=== PATIENT | female | born 1955 | race Caucasian/White ===

== ENCOUNTER → 2021-03-22 14:43 | Outpatient (CLI) | payer MEDICARE, OTHER, SELFPAY ==
--- NOTE | ~2021-03-22 | XR_ITS ---
EXAMINATION: XR knee LT 3V DATE: 03/22/2021 15:02 INDICATION: Left knee pain. TECHNIQUE: 3 views of left knee were obtained. COMPARISON: None. FINDINGS: Bone alignment is normal. No fracture. There is mild tricompartmental osteophytosis. There is a moderate-sized knee joint effusion. IMPRESSION: 1. Mild left knee osteoarthritis. 2. Moderate-sized left knee joint effusion. Reviewed, dictated and finalized at location A.
== END ==
PROVIDERS: PCP Internal Medicine; Visit Provider Internal Medicine
DX: M25.569 Pain in unspecified knee (principal); M17.12 Unilateral primary osteoarthritis, left knee; M25.462 Effusion, left knee
CPT/HCPCS: 73562

== ENCOUNTER 2021-05-02 11:00 | Outpatient (RCR) | payer MEDICARE, OTHER, SELFPAY ==
--- NOTE | 2021-04-17 10:45 | PTOPEVAL ---
Thank you for referring Lucero Dior to [facility].? The patient is scheduled to be seen for therapy? 1 x/week for 4 weeks. Please review, sign, date and return this plan of care MITZI. I agree with and certify that the following plan of care is medically necessary. Referring Physician Date Attending Provider: Vito Fong MD Diagnosis left knee pain Onset 2 months ago Additional Evaluation Detail she had a x-ray which showed fluid of the knee. She received an injection 04/05/21. She had a fall 2 wks ago when her left knee gave out, landing backwards. Subjective Information She reports the knee simply Query Text:As Reported By Patient/ started hurting. She denies Family any injury to the knee. Reports increased pain and difficulty getting out of the chair, walking, squating, negotiating steps. She has not been walking the dogs due to pain. 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 Reports her hip region is also sore. Reports increased pain at night. States her right knee is now also painful. Pain Assessment Self Report Pain Assessment Left Knee(s) Reported Pain Level 5 Pain Description Aching,Tightness Pain Frequency Acute,Continuous Lowest Pain Intensity 4 Greatest Pain Intensity 8 Pain Aggravating Factors ADL's,Bending,Exercise/ Activity,Sitting,Stair Climbing,Walking,Weight Bearing/Standing Lower Extremity Range of Motion Knee Range of Motion Right Knee Flexion Range of Motion - Active 125 Knee Extension Range of Motion - Active -15 Left Knee Flexion Range of Motion - Active 98 Knee Extension Range of Motion - Active 0 Knee Range of Motion Limitations Pain Lower Extremity Muscle Strength Testing Hip Strength Bilateral Hip Flexion Strength 4 Good Hip Extension Strength 3 Fair Hip Abduction Strength 3 Fair Knee Strength Bilateral Knee Flexion Strength 4- Good - Knee Extension Strength 4- Good - Ankle Strength Bilateral Ankle Dorsiflexion Strength 5 Normal Muscle Length Testing Muscle Length Testing Two-Joint Hip Flexor Shortened Muscles Short (R) Iliopsoas,Short (L)
--- NOTE | 2021-04-27 08:38 | PCPTNOTE ---
Patient called & cancelled scheduled appointment this date due to being sick.
--- NOTE | 2021-05-08 11:17 | PCPTNOTE ---
Patient called & cancelled scheduled appointment this date due to just getting out of the hospital.
--- NOTE | 2021-05-11 08:19 | PCPTNOTE ---
Patient called & cancelled scheduled appointment for re-eval due to knee limitations have improved. Will plan to DC.
--- NOTE | 2021-05-11 08:21 | PCPTNOTE ---
Admitting Provider: Attending Provider: Vito Fong MD Patient:Lucero Dior Date of :1955 Discharge Note Patient has not returned for any further treatments since 05/02/2021. She called to request her additional visits be cancelled due to her knee feeling better. Therefore she will be discharged at this time. Patient?s initial visit was on 04/17/2021 09:30 and she had a total of 2 visits with 3 cancelled visits. The goals have been not met at this time. Thank you for referring this patient to [facility]. Please review, sign, date and return this discharge summary MITZI. I have been updated about the patient's current status and I agree with discharge from the above service at this time. Referring Physician Date
== END 2021-07-02 11:47 | disposition home or self-care (01) ==
LOC: ANHPT 11:00
PROVIDERS: PCP Internal Medicine; Visit Provider Orthopaedic Surgery
DX: M17.12 Unilateral primary osteoarthritis, left knee (principal)
CPT/HCPCS: 97110; 97161; 97530

== ENCOUNTER 2021-08-10 07:07 | Outpatient (CLI) | payer MEDICARE, OTHER, SELFPAY ==
--- NOTE | ~2021-08-10 | MM_ITS ---
EXAMINATION: MM screening nichole BI w nellie HISTORY: Screening mammogram TECHNIQUE: Craniocaudal and mediolateral oblique 3-D tomosynthesis images were obtained and synthetic 2-D images were generated. CAD analysis was submitted and interpreted. COMPARISON: 07/28/2019, 07/03/2018, 06/16/2017 bilateral screening mammogram examinations BREAST PARENCHYMAL COMPOSITION: There are scattered areas of fibroglandular density. FINDINGS: There is no evidence of suspicious mass, calcification, or architectural distortion to sugg est malignancy in either breast. There has been no suspicious interval change. IMPRESSION: 1. No mammographic evidence of malignancy. 2. Recommend routine screening mammography in one year. BI-RADS Category 1: Negative Reviewed, dictated and finalized at location A. [employer]
== END 2021-08-10 07:08 | disposition home or self-care (01) ==
LOC: ANHIMG 07:09
PROVIDERS: PCP Internal Medicine; Visit Provider Obstetrics & Gynecology
DX: Z12.31 Encounter for screening mammogram for malignant neoplasm of breast (principal)
CPT/HCPCS: 77063; 77067

== ENCOUNTER 2022-02-28 09:35 | Outpatient (CLI) | payer MEDICARE, OTHER, SELFPAY ==
--- NOTE | ~2022-02-28 | DEXA_ITS ---
Bone Density Report Name: MONTY GARZA Age: 67 Sex: Female Ethnicity: White Date of : 1955 Indication: postmenopausal; screening for osteoporosis; height loss; Referring Provider: CHARLY RANDALL Study: Bone densitometry was performed. Exam Date: February 28, 2022 Accession number: [id number] Bone Density: Region BMD T-score Z-score Classification AP Spine(L1, L2) 1.220 2.2 4.1 Normal Femoral Neck (Left) 0.739 -1.0 0.7 Normal Total Hip (Left) 0.973 0.3 1.7 Normal Femoral Neck (Right) 0.764 -0.8 1.0 Normal Total Hip (Right) 0.970 0.2 1.7 Normal Total Hip Mean 0.972 0.3 1.7 Normal World Health Organization criteria for BMD impression classify patients as: Normal (T-score at or above -1.0), Osteopenia (T-score between -1.0 and -2.5), or Osteoporosis (T-score at or below -2.5). 10-year Fracture Risk: FRAX not reported because: All T-scores for Spine Total, Hip Total, Femoral Neck at or above -1.0 Clinical Information Provided by Patient: Smokes Patient maximum height was 66 Menopause Age: 48 No regular weight bearing exercise Does not regularly consume dairy products Drinks caffeinated beverages Onset of menses at age 13 Number of children 2 Impression: The patient has normal bone mass. The patient has risk factors, including: smoking. Discussion: BONE DENSITY IS ABOVE THE MINIMUM DESIRABLE LEVEL AT ALL SKELETAL SITES TESTED. This patient?s bone mineral density is above the minimum desirable level (T-score -1.0 or better) at all sites measured. The patient should follow a healthful lifestyle (good nutrition with adequate calcium and vitamin D, and appropriate weight-bearing exercise). Follow-Up: Consider repeating this study in 5 years or sooner if there is some new clinical indication. Reported by: [facility] on 02/28/2022 10:00:00 AM. Reviewed, dictated and finalized at location ASejal KILLIAN
== END 2022-02-28 09:36 | disposition home or self-care (01) ==
PROVIDERS: PCP Internal Medicine; Visit Provider Nurse Practitioner
DX: Z78.0 Asymptomatic menopausal state (principal)
CPT/HCPCS: 77080

== ENCOUNTER 2022-11-20 11:26 | Outpatient (CLI) | payer MEDICARE, OTHER, SELFPAY ==
--- NOTE | ~2022-11-20 | MM_ITS ---
EXAMINATION: MM screening nichole BI w nellie HISTORY: Screening mammogram TECHNIQUE: Craniocaudal and mediolateral oblique 3-D tomosynthesis images were obtained and synthetic 2-D images were generated. CAD analysis was submitted and interpreted. COMPARISON: 08/10/2021, 07/28/2019, 07/03/2018 bilateral screening mammogram examinations BREAST PARENCHYMAL COMPOSITION: There are scattered areas of fibroglandular density. FINDINGS: There is no evidence of suspicious mass, calcification, or architectural distortion to sugg est malignancy in either breast. There has been no suspicious interval change. IMPRESSION: 1. No mammographic evidence of malignancy. 2. Recommend routine screening mammography in one year. BI-RADS Category 1: Negative Reviewed, dictated and finalized at location A. CUTTER
== END 2022-11-20 11:27 | disposition home or self-care (01) ==
LOC: ANHIMG 11:29
PROVIDERS: PCP Internal Medicine; Visit Provider Nurse Practitioner
DX: Z12.31 Encounter for screening mammogram for malignant neoplasm of breast (principal)
CPT/HCPCS: 77063; 77067

== ENCOUNTER 2024-05-27 15:07 | Outpatient (CLI) | payer MEDICARE, OTHER, SELFPAY ==
--- NOTE | ~2024-05-27 | MM_ITS ---
EXAMINATION: MM screening nichole BI w nellie HISTORY: Screening TECHNIQUE: Craniocaudal and mediolateral oblique 3-D tomosynthesis images were obtained and synthetic 2-D images were generated. CAD analysis was submitted and interpreted. COMPARISON: Comparison to multiple prior studies sequentially, with oldest reviewed study dated 02/2019. BREAST PARENCHYMAL COMPOSITION: Not dense: There are scattered areas of fibroglandular density. FINDINGS: There is no evidence of suspicious mass, calcification, or architectural distortion to sugg est malignancy in either breast. There has been no suspicious interval change. IMPRESSION: 1. No mammographic evidence of malignancy. 2. Recommend routine screening mammography in one year. BI-RADS Category 1: Negative Reviewed, dictated and finalized at location B.
== END 2024-05-27 15:08 | disposition home or self-care (01) ==
LOC: ANHIMG 15:08
PROVIDERS: PCP Family Medicine; Visit Provider Nurse Practitioner
DX: Z12.31 Encounter for screening mammogram for malignant neoplasm of breast (principal)
CPT/HCPCS: 77063; 77067

== ENCOUNTER 2025-07-06 15:16 | Outpatient (CLI) | payer MEDICARE, OTHER, SELFPAY ==
--- NOTE | ~2025-07-06 | XR_ITS ---
EXAMINATION: XR knee RT 3V, 07/06/2025 15:32 CDT HISTORY: MEDIAL RT KNEE PAIN x3 MONTHS COMPARISON: No comparisons available. Findings: No acute fracture or malalignment. Moderate tricompartmental degenerative changes Soft tissues unremarkable. Impression: No acute fracture or malalignment. Reviewed, dictated and finalized at location P. Impression: No acute fracture or malalignment.
== END 2025-07-06 15:17 | disposition home or self-care (01) ==
LOC: MICIMG 15:18
PROVIDERS: PCP Family Medicine; Visit Provider Family Medicine
DX: M17.11 Unilateral primary osteoarthritis, right knee (principal)
CPT/HCPCS: 73562

== ENCOUNTER 2025-09-10 08:41 | Emergency (ER) | payer MEDICARE, OTHER, SELFPAY ==
--- NOTE | ~2025-09-10 | XR_ITS ---
Examination: XR chest 2V Clinical History: cough few months, smoker, hx bronchitis Comparison: Chest x-rays 11/19/2017 Technique: PA and Lateral Findings: Cardiomediastinal silhouette normal size and configuration. Subtle patchy bibasilar opacity. No acute bony abnormality. IMPRESSION: 1. Mild bibasilar atelectasis and/or airspace disease. 2. Trace pleural fluid within major fissure.. Reviewed, dictated and finalized at location R. CHIST
[2025-09-10 08:52] VITALS: BP 147/92; PULSE 86; RESP 18; TEMP 36.6; O2SAT 96
--- NOTE | 2025-09-10 09:07 | ED.URI ---
HPI - URI/Sore Throat General Chief Complaint: Upper Respiratory Infection Stated Complaint: Sinus patient presents to the [facility] accompanied by family with complaints of cough, chest congestion, and nasal congestion, pressure in ears, diarrhea, and fatigue that began about 2-3 weeks ago. Patient reports using Mucinex with minimal relief of symptoms. No known sick contacts. Patient does report history of bronchitis every few years but denies having any continued inhalers or as needed inhalers at home. No history of pneumonia or lung disease. Denies fever, chills, body aches, shortness of breath nausea, vomiting, dizziness, or sore throat. Related Data Home Medications ?Medication ?Instructions ?Recorded ?Confirmed ?Last Taken ?Type aspirin 81 mg tablet,delayed 81 mg PO DAILY 10/16/21 11/05/22 Unknown History release (Adult Low Dose Aspirin) Saccharomyces boulardii 250 mg 250 mg PO DAILY 12/02/23 Unknown History capsule (Daily Probiotic (S. boulardii)) calcium carbonate (Calcium 600) 600 mg PO DAILY 12/02/23 Unknown History multivitamin 1 tablet PO DAILY 12/02/23 Unknown History Allergies Allergy/AdvReac Type Severity Reaction Status Date / Time No Known Allergies Allergy Mild Verified 09/10/25 08:50 Review of Systems Constitutional: Constitutional: Reports as per HPI, Denies chills, Reports fatigue, Denies fever(s) and Denies weakness Eyes: Eyes: Reports no additional eye complaints ENT: Reports as per HPI, Denies vertigo, Denies dizziness, Reports nasal congestion and Denies sore throat Comments: nasal drainage, sinus pressure, ear pressure Cardiovascular: Cardiovascular: Reports no additional cardiovascular complaints Respiratory: Respiratory: Reports as per HPI, Reports chest congestion, Reports cough, Denies dyspnea and Denies wheezing Gastrointestinal: Gastrointestinal: Reports as per HPI, Denies abdominal pain, Reports diarrhea, Denies nausea and Denies vomiting Genitourinary: Genitourinary: Reports as per HPI Musculoskeletal: Musculoskeletal: Reports as per HPI and Denies myalgias Integumentary/Breasts: Skin/Breast: Reports as per HPI, Denies erythema, Denies rash and Denies skin ulcer Neurologic: Reports as per HPI, Denies vertigo, Denies dizziness, Reports headache(s) and Denies weakness Psychiatric: Psychiatric: Reports no additional psychiatric complaints Endocrine: Endocrine: Reports no additional endocrine complaints Hematologic/Lymphatic: Hematologic/Lymphatic: Reports no additional hematologic/lymphatic complaints Allergic/Immunologic: Allergic/Immunologic: Reports no additional allergic/immunologic complaints [facility] Past Medical History Medical History Overactive bladder Arthritis of left knee Tobacco dependence Anxiety and depression Essential (primary) hypertension Surgical History Surgical History H/O dilation and curettage History of appendectomy Family History Family History Mother Hypertension Father Head injury Social History Social History Smoking packs per day: 0.5 Smoking cigarettes per day: 10.0 Years smoked: 50 Smoking pack-years: 25.00 Smoking status: Current every day smoker Tobacco type: cigarettes Second hand tobacco smoke exposure: Yes Alcohol intake: current Drinks per week: 3 Substance use: never Substance use type: does not use Lack of Transportation: No Lack of Food: Never True Current Housing: I Have Housing Concerned About Future Housing: No Difficulty Paying Gas/Electric Bills: No Difficulty Paying for Meds: No Currently Unemployed: No Education: High School Diploma/GED Difficulty w/ Childcare or Family Care: No Living arrangements: alone Occupation/Education: retired Gender identity (if verbalized by the patient): Female Sexual Orientation (if Verbalized by the Patient): Straight or Heterosexual Exam Const: General: healthy appearing and no acute distress Nutritional Appearance: well nourished Orientation/consciousness: patient oriented x3 Limitations: no limitations HENMT: Head: normal to inspection Ears: external ears normal and TM's normal bilaterally Face/Nose/Sinus: Normal external nose present, nares abnormal ( Mild erythema and edema bilaterally) and no nasal discharge noted Face and sinus: normal facial exam and sinuses nontender Mouth: Yes Normal oral and palatal mucosa present and Yes moist mucous membranes Throat: posterior oropharynx abnormal ( minimal erythema no edema or exudate) Neck: Neck: normal visual inspection and no lymphadenopathy Resp: Effort & Inspection: normal respiratory effort Auscultation: rhonchi left upper and left lower, no wheezes, breath sounds present and lung sounds not diminished Other: congested cough noted Cardio: Rate: regular rate Rhythm: regular rhythm Skin: General skin exam: normal color Rashes: no rashes Wounds: no wounds Neuro: General: patient oriented x3 and moves all extremities Speech: normal speech Gait exam (Neuro): Normal gait present Psych: Mental Status: mental status grossly normal Affect: normal affect Attitude: cooperative Course Course Level of Care: Express Care Visit Vital Signs Vital signs: Vital Signs Temperature 97.9 F 09/10/25 08:52 Pulse Rate 86 09/10/25 08:52 Respiratory Rate 18 09/10/25 08:52 Blood Pressure 147/92 H 09/10/25 08:52 Pulse Oximetry 96 09/10/25 08:52 Oxygen Delivery Room Air 09/10/25 08:52 Temperature 97.9 F 09/10/25 08:52 Pulse Rate 86 09/10/25 08:52 Respiratory Rate 18 09/10/25 08:52 Blood Pressure 147/92 H 09/10/25 08:52 Pulse Oximetry 96 09/10/25 08:52 Oxygen Delivery Room Air 09/10/25 08:52 [facility] MDM Narrative Medical decision making narrative: chest x-ray ordered. Bronchitis versus pneumonia. The patient was evaluated by myself in the express care. History is obtained from patient who is an independent historian and physical exam was performed. Available medical records were reviewed at this time. Exam findings show no acute concerns or changes; patient is non-toxic appearing and is in no distress. Patient is appropriate for outpatient treatment and follow-up. I have evaluated and discussed social determinants of health with the patient that could potentially impact subsequent diagnosis and treatment plans. Differential diagnosis and treatment plan were discussed with the patient. Patient agrees with discussion and after shared medical decision making agrees with plan of care. All questions were answered to the patient's satisfaction. Differential Diagnosis Differential Diagnosis: Bronchitis, pneumonia, COVID, influenza, upper respiratory infection, sinusitis Medical Records I have reviewed the following patient records and this information was taken into consideration when formulating the assessment and plan.: previous labs, previous ER visits, previous hospitalizations and previous clinic visits Imaging Data Radiologist's impression: ITS Impressions Chest X-Ray 09/10/25 09:20 IMPRESSION: 1. Mild bibasilar atelectasis and/or airspace disease. 2. Trace pleural fluid within major fissure.. Discharge Plan Discharge Clinical Impression: Bronchitis Patient Disposition: Home Condition: Stable Instructions: Antibiotic Form, Acute Bronchitis (ED) Additional Instructions: You have been diagnosed with bronchitis, this is more commonly a viral illness but given the length of your symptoms we will start an antibiotic. Taking medications to control your symptoms will help you feel better.Bronchitis does occasionally a post viral cough that is dry and hacking in nature that can last 6-8 weeks. Take the antibiotics until they are gone. Ensure to have yogurt daily or a probiotic to help with GI upset and diarrhea that comes commonly with antibiotics. If this is significant stop the antibiotics and call primary care for follow-up. Medication you can take to make you feel better: prednisone as directed. this medication can cause jitteriness or palpitations. If this happens You may stop this medication. albuterol inhaler every 4 hours as needed for cough, shortness of breath, or wheezing. Tessalon Perles/benzonatate for cough. These can be taken 3 times a day as needed. May also use [id number] medications like Mucinex, Sudafed, Flonase, Tylenol, and ibuprofen. If your symptoms worsen or last longer than 7-10 days follow-up with primary care provider or emergency room as needed. Patient Language: Sierra Leonean Prescriptions: New benzonatate 200 mg capsule 200 mg PO TID PRN (Reason: cough) Qty: 30 0RF doxycycline monohydrate 100 mg capsule 100 mg PO BID Qty: 20 0RF codeine-guaifenesin [Guaifenesin AC] 10-100 mg/5 mL liquid 5 ml PO Q6H PRN (Reason: cough) Qty: 120 0RF methylprednisolone [Medrol (Rakesh)] 4 mg tablets,dose pack See Rx Instructions .ROUTE .COMPLEX Qty: 21 0RF Rx Instructions: for 6 days albuterol sulfate [Ventolin HFA] 90 mcg/actuation HFA aerosol inhaler 2 puff inhalation QID PRN (Reason: shortness of breath or wheezing) Qty: 8.5 0RF No Action aspirin [Adult Low Dose Aspirin] 81 mg tablet,delayed release (DR/EC) 81 mg PO DAILY Patient Comments: 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 boulardii)] 250 mg capsule 250 mg PO DAILY multivitamin Tablet 1 tablet PO DAILY montelukast [Singulair] 10 mg tablet 10 mg PO DAILY Qty: 90 0RF (DME) blood-glucose meter [Accu-Chek [place] Glucose M[place] [facility] [place] .[place] Qty: 1 0RF Rx Instructions: Check blood glucose 1xday As directed cholecalciferol (vitamin D3) 1,250 mcg (50,000 unit) tablet 1,250 mcg PO WEEKLY Qty: 14 1RF metformin 500 mg tablet 500 mg PO DAILY Qty: 90 0RF clonazepam 1 mg tablet 1 mg PO BID PRN (Reason: anxiety) Qty: 60 0RF rosuvastatin 10 mg tablet See Rx Instructions .ROUTE .COMPLEX Qty: 90 1RF Dose Instruction: TAKE 1 TABLET BY MOUTH DAILY; TAKE WITH COENZYME Q10 DAILY Rx Instructions: TAKE 1 TABLET BY MOUTH DAILY; TAKE WITH COENZYME Q10 DAILY (DME) Accu-Chek Guide test strips Strip See Rx Instructions .ROUTE .COMPLEX Qty: 100 0RF Dose Instruction: USE TO TEST BLOOD GLUCOSE ONCE DAILY Rx Instructions: USE TO TEST BLOOD GLUCOSE ONCE DAILY (DME) lancets [Accu-Chek [place]clix Lancets[place] [facility] [place] .ROUTE .COMPLEX Qty: 100 0RF Dose Instruction: USE TO CHECK BLOOD SUGAR ONCE DAILY Rx Instructions: USE TO CHECK BLOOD SUGAR ONCE DAILY escitalopram oxalate 20 mg tablet See Rx Instructions .ROUTE .COMPLEX Qty: 90 0RF Dose Instruction: TAKE 1 TABLET BY MOUTH DAILY Rx Instructions: TAKE 1 TABLET BY MOUTH DAILY losartan 50 mg tablet See Rx Instructions .ROUTE .COMPLEX Qty: 90 0RF Dose Instruction: TAKE 1 TABLET BY MOUTH DAILY Rx Instructions: TAKE 1 TABLET BY MOUTH DAILY Follow-up/Referrals: Tyler Linda MD [Primary Care Provider, Family Practice] Time of Disposition: 09:26
== END 2025-09-10 09:30 | disposition home or self-care (01) ==
PROVIDERS: Emergency Provider Nurse Practitioner Family; PCP Family Medicine
DX: J40 Bronchitis, not specified as acute or chronic (principal); I10 Essential (primary) hypertension; N32.81 Overactive bladder; M17.12 Unilateral primary osteoarthritis, left knee; F41.9 Anxiety disorder, unspecified; F32.A Depression, unspecified; Z79.82 Long term (current) use of aspirin; F17.210 Nicotine dependence, cigarettes, uncomplicated
CPT/HCPCS: 71046; 99213; G0463